=== PATIENT | female | born 1985 | race Caucasian/White ===

== ENCOUNTER 2016-11-01 12:55 | Emergency (ER) | payer MEDICAID ==
[~2016-11-01] VITALS: Ht 182.9 cm; Wt 92.3 kg
[~2016-11-01 12:55] MED LIST: HYDR-3240 PO; PENI250T91 PO
[2016-11-01 14:40] VITALS: BP 116/69
[2016-11-01 15:09] LABS: ASPARTATE AMINO TRANSFERASE 16 U/L (15-37); BLOOD UREA NITROGEN 7 mg/dL (7-18)
[2016-11-01 15:17] LABS: HCG UR OBC PASS
== END 2016-11-01 15:38 | disposition home or self-care (01) ==
LOC: ED 15:32
DX: O26.891 Other specified pregnancy related conditions, first trimester (principal); F17.200 Nicotine dependence, unspecified, uncomplicated; Z3A.08 8 weeks gestation of pregnancy
CPT/HCPCS: 36415; 76801; 80053; 81001; 81025; 84702; 85025; 87077; 87086; 87186